=== PATIENT | male | born 1995 | race Caucasian/White ===

== ENCOUNTER 2021-02-12 14:19 | Emergency (ER) | payer BC ==
[~2021-02-12] VITALS: Ht 175.3 cm; Wt 81.2 kg
[~2021-02-12 14:19] MED LIST: BACTRIM DS TAB1 EACH PO; FLOMAX0.4 MG PO; KEFLEX500 MG PO; LEVSIN-SL0.125 MG SL; NORCO 5-325 TA1 EACH PO
--- NOTE | 2021-02-14 17:12 | EKG ---
[facility] [address] [facility] [place] [id number] Signed Normal sinus rhythm Normal ECG Confirmed by AGUILAR MATUTE MD ([id number]) on 02/14/2021 5:12:19 PM Electronically Signed By: AGUILAR MATUTE MD 02/14/21 1712 PATIENT NAME: TARIK RAE Electrocardiogram DATE OF : [birth year] PHYSICIAN: AGUILAR MATUTE MD REPORT #: [id number] REPORT IS CONFIDENTIAL AND NOT TO BE RELEASED WITHOUT AUTHORIZATION
== END 2021-02-12 16:12 | disposition home or self-care (01) ==
LOC: ED 14:19
DX: R56.9 Unspecified convulsions (principal); F17.200 Nicotine dependence, unspecified, uncomplicated
CPT/HCPCS: 70450; 80053; 81001; 85025; 93005; 93010; 96374; 99284-25; J2060